=== PATIENT | male | born 1960 ===

== ENCOUNTER 2018-02-24 11:50 | Emergency (ER) | payer OTHER, SELFPAY ==
[2018-02-24 12:08] VITALS: BMI 25.0
--- NOTE | 2018-02-24 12:32 | ED PDOC ---
HPI: CCC, URI, Sore Throat Time Seen by Provider: 02/24/18 12:15 Chief Complaint (Nursing): ENT Problem Chief Complaint (Provider): ENT Problem History Per: Patient History/Exam Limitations: no limitations Onset/Duration Of Symptoms: Days (x 2) Current Symptoms Are (Timing): Still Present Location Of Pain: Throat Associated Symptoms: Chills Additional Complaint(s): 57 year old male presents to the ED with a sore throat and associated chills for 2 days. Patient denies having sick contacts and taking medications before arrival. PMD: none provided Past Medical History Reviewed: Historical Data, Nursing Documentation, Vital Signs Vital Signs: Last Vital Signs Temp 99.0 F 02/24/18 12:49 Pulse 87 02/24/18 12:49 Resp 18 02/24/18 12:49 BP 124/73 02/24/18 12:49 Pulse Ox 97 02/24/18 12:49 - Medical History PMH: No Chronic Diseases - Surgical History Surgical History: No Surg Hx - Family History Family History: States: Unknown Family Hx - Social History Current smoker - smoking cessation education provided: No Alcohol: None Drugs: Denies - Home Medications Home Medications: Ambulatory Orders Medication Instructions Recorded Ibuprofen [Motrin] 600 mg PO Q8 PRN #21 tab 02/24/18 - Allergies Allergies/Adverse Reactions: Allergies Allergy/AdvReac Type Severity Reaction Status Date / Time No Known Allergies Allergy Verified 03/31/14 10:32 Review of Systems ROS Statement: Except As Marked, All Systems Reviewed And Found Negative Constitutional: Positive for: Chills ENT: Positive for: Throat Pain Physical Exam - Reviewed Nursing Documentation Reviewed: Yes Vital Signs Reviewed: Yes - Physical Exam Appears: Positive for: Non-toxic, No Acute Distress Head Exam: Positive for: ATRAUMATIC, NORMAL INSPECTION, NORMOCEPHALIC Skin: Positive for: Normal Color, Warm, Dry Eye Exam: Positive for: EOMI, Normal appearance, PERRL ENT: Positive for: Pharyngeal Erythema (mild erythema to right posterior pharynx ). Negative for: Nasal Congestion, Tonsillar Exudate, Tonsillar Swelling Neck: Positive for: Normal, Painless ROM, Supple Cardiovascular/Chest: Positive for: Regular Rate, Rhythm. Negative for: Murmur Respiratory: Positive for: CNT, Normal Breath Sounds Extremity: Positive for: Normal ROM. Negative for: Deformity Neurologic/Psych: Positive for: Alert, Oriented (x 3) - ECG O2 Sat by Pulse Oximetry: 99 (RA) Pulse Ox Interpretation: Normal - Progress ED Course And Treament: RAPID STREP: NEG MOTRIN 600MG X 1 DOSE Medical Decision Making Medical Decision Makin:17 --Motrin 600 mg PO --rapid strep test --reassess 12:40 Rapid strep results are negative. Scribe Attestation: Documented by Edith Nunes, acting as a scribe for Gemma Gary PA-C Provider Scribe Attestation: All medical record entries made by the Scribe were at my direction and personally dictated by me. I have reviewed the chart and agree that the record accurately reflects my personal performance of the history, physical exam, medical decision making, and the department course for this patient. I have also personally directed, reviewed, and agree with the discharge instructions and disposition. Disposition - Clinical Impression Clinical Impression: Pharyngitis - Patient ED Disposition Is Patient to be Admitted: No - Disposition Disposition: Routine/Home Disposition Time: 13:05 Condition: FAIR Prescriptions: Ibuprofen [Motrin] 600 mg PO Q8 PRN #21 tab PRN Reason: Pain, Moderate (4-7) Instructions: Viral Pharyngitis Forms: [facility] ED School/Work Excuse Print Language: HUNGARIAN
[2018-02-24 12:50] VITALS: BP 124/73; PULSE 87; RESP 18; TEMP 99
[2018-02-24 13:07] VITALS: O2SAT 99
== END 2018-02-24 13:14 | disposition home or self-care (01) ==
LOC: H.ER 11:50
DX: J02.9 Acute pharyngitis, unspecified (principal)

== ENCOUNTER 2018-03-19 11:41 | Emergency (ER) | payer OTHER ==
[2018-03-19 11:41] VITALS: BMI 25.0
[2018-03-19 11:55] VITALS: BP 116/74; PULSE 73; RESP 17; TEMP 97.9; O2SAT 99
--- NOTE | 2018-03-19 13:09 | ED PDOC ---
Upper Extremity Pain/Injury Time Seen by Provider: 03/19/18 12:20 Chief Complaint (Nursing): Upper Extremity Problem/Injury Chief Complaint (Provider): Upper Extremity Problem/Injury History Per: Patient History/Exam Limitations: no limitations Onset/Duration Of Symptoms: Hrs (x3) Additional Complaint(s): Patient is a 57 y/o male who presents to the ED for evaluation of left hand pain s/p fall. Patient states that around 09:28 he hit his left hand during a fall. He reports having swelling to the left ring finger. Patient has not taken any medications for the pain but the pain is not getting better, prompting the ED visit. Past Medical History Reviewed: Historical Data, Nursing Documentation, Vital Signs Vital Signs: Last Vital Signs Temp 97.9 F 03/19/18 11:54 Pulse 73 03/19/18 11:54 Resp 17 03/19/18 11:54 BP 116/74 03/19/18 11:54 Pulse Ox 99 03/19/18 11:54 - Medical History PMH: Hyperlipidemia - Surgical History Surgical History: No Surg Hx - Family History Family History: States: Unknown Family Hx - Living Arrangements Living Arrangements: With Family - Home Medications Home Medications: Ambulatory Orders Medication Instructions Recorded Ibuprofen [Motrin] 600 mg PO Q8 PRN #21 tab 02/24/18 - Allergies Allergies/Adverse Reactions: Allergies Allergy/AdvReac Type Severity Reaction Status Date / Time No Known Allergies Allergy Verified 03/31/14 10:32 Review of Systems ROS Statement: Except As Marked, All Systems Reviewed And Found Negative Constitutional: Negative for: Fever Musculoskeletal: Positive for: Hand Pain (left ring finger) Physical Exam - Reviewed Nursing Documentation Reviewed: Yes Vital Signs Reviewed: Yes - Physical Exam Appears: Positive for: Non-toxic, No Acute Distress Head Exam: Positive for: ATRAUMATIC, NORMOCEPHALIC Skin: Positive for: Normal Color, Warm, DRY Cardiovascular/Chest: Positive for: Regular Rate, Rhythm. Negative for: Murmur, Bradycardia, Tachycardia Respiratory: Positive for: Normal Breath Sounds. Negative for: Respiratory Distress Extremity: Positive for: Normal ROM, Tenderness (tenderness over left 4th PIP), Capillary Refill (<2 seconds), Swelling (swelling over left 4th PIP). Negative for: Pedal Edema, Deformity Neurologic/Psych: Positive for: Alert, Oriented. Negative for: Motor/Sensory Deficits - ECG O2 Sat by Pulse Oximetry: 99 (RA) Pulse Ox Interpretation: Normal Medical Decision Making Medical Decision Making: Time: 12:21 Initial Impression: left 4th digit pain Initial Plan: --RAD - hand left Time: 13:06 X ray shows no acute fracture or dislocation as read by ER PA. Time: 13:07 Upon provider evaluation patient is medically stable, and requires no further treatment in the ED at this time. Patient will be discharged home with Rx for Motrin 600 mg. Counseling was provided and all questions were answered regarding diagnosis and need for follow up with PMD. There is agreement to discharge plan. Return if symptoms persist or worsen. Scribe Attestation: Documented by Jamie Redmond, acting as a scribe for Vaishali Mendiola PA-C. Provider Scribe Attestation: All medical record entries made by the Scribe were at my direction and personally dictated by me. I have reviewed the chart and agree that the record accurately reflects my personal performance of the history, physical exam, medical decision making, and the department course for this patient. I have also personally directed, reviewed, and agree with the discharge instructions and disposition. Disposition - Clinical Impression Clinical Impression: Finger injury - Patient ED Disposition Is Patient to be Admitted: No - Disposition Referrals: Audrey Sol MD [Staff Provider] - Disposition: Routine/Home Disposition Time: 13:07 Condition: STABLE Additional Instructions: HAILEY MICHELLE, thank you for letting us take care of you today. Your provider was Alfredito Crawford MD and you were treated for FINGER PAIN. The emergency medical care you received today was directed at your acute symptoms. I f you were prescribed any medication, please fill it and take as directed. It may take several days for your symptoms to resolve. Return to the Emergency Department if your symptoms worsen, do not improve, or if you have any other problems. Please contact your doctor or call one of the physicians/clinics you have been referred to that are listed on the Patient Visit Information form that is inclu ded in your discharge packet. Bring any paperwork you were given at discharge with you along with any medications you are taking to your follow up visit. Our treatment cannot replace ongoing medical care by a primary care provider outside of the emergency department. Thank you for allowing the [facility] team to be part of your care today. If you had an X-Ray or CT scan: A Radiologist will review the ED reading if any change in treatment is needed we will contact you. If you had a blood, urine, or wound culture: It will take several days for the results, if any change in treatment is needed we will contact you. If you had an STI test: It will take 48 hours for the results. Please call after 1 week if you have not heard back. Instructions: Jammed Finger Forms: [employer] (Nepali)
--- NOTE | 2018-03-19 13:19 | RAD ---
Date of service: 03/19/2018 PROCEDURE: Left ring finger radiographs. HISTORY: pain over PIP, hit finger COMPARISON: None. TECHNIQUE: AP radiograph of the left hand, as well as spot oblique and lateral images of left ring finger were obtained. FINDINGS: LEFT RING FINGER: Left ring finger normal, without fracture of focal lesion. Remainder of the left hand (as seen on the AP view) is grossly unremarkable. There is a cleft of the distal tuft of the 3rd distal phalanx, possibly the result of old trauma. JOINTS: Normal. SOFT TISSUES: Normal. OTHER FINDINGS: None. IMPRESSION: No acute fracture.
== END 2018-03-19 13:17 | disposition home or self-care (01) ==
LOC: H.ER 11:41
DX: S69.92XA Unspecified injury of left wrist, hand and finger(s), initial encounter (principal); W18.30XA Fall on same level, unspecified, initial encounter

== ENCOUNTER 2018-04-30 11:23 | Emergency (ER) | payer OTHER ==
[2018-04-30 11:25] VITALS: BMI 25.0
[2018-04-30 12:05] VITALS: BP 139/88; PULSE 66; RESP 18; TEMP 96; O2SAT 99
[2018-04-30] MEDS ORDERED: Sodium Chloride 0.9% 1,000 ML IV STA (12:50)
[2018-04-30 13:08] LABS: BASO % 0.4 % (0.0-2.0); EOS % 0.8 % (0.0-4.0); LYMPH # 2.6 K/uL (1.0-4.3); LYMPH % 42.1 % (20.0-40.0); MEAN CELL VOLUME 88.6 fl (80.0-94.0); MEAN CORPUSCULAR HEMOGLOBIN 29.4 pg (27.0-31.0); MEAN CORPUSCULAR HGB CONC 33.2 g/dL (33.0-37.0); MEAN PLATELET VOLUME 8.1 fl (7.2-11.7); MONO # 0.6 K/uL (0.0-0.8); MONO % 9.7 % (0.0-10.0); NEUT # 2.9 K/uL (1.8-7.0); NRBC % 0.1 % (0.0-0.0); RBC 5.43 Mil/uL (4.40-5.90); RED CELL DISTRIBUTION WIDTH 13.9 % (11.5-14.5); WHITE BLOOD COUNT 6.2 K/uL (4.8-10.8)
[2018-04-30 13:14] LABS: INR 1.1; PROTHROMBIN TIME 12.1 Seconds (9.8-13.1)
[2018-04-30 13:16] LABS: PARTIAL THROMBOPLASTIN TIME 38.3 Seconds (25.6-37.1)
[2018-04-30 13:17] LABS: ALB/GLOB RATIO 1.2 (1.0-2.1); ALBUMIN 4.6 g/dL (3.5-5.0); ALT/SGPT 27 U/L (21-72); AST/SGOT 24 U/L (17-59); BLOOD UREA NITROGEN 14 mg/dl (9-20); CALCIUM 9.5 mg/dL (8.4-10.2); GFR NON-AFRICAN AMERICAN > 60
--- NOTE | 2018-04-30 13:33 | ED PDOC ---
HPI: General Adult Time Seen by Provider: 04/30/18 12:34 Chief Complaint (Nursing): GI Problem Chief Complaint (Provider): GI Problem History Per: Patient History/Exam Limitations: no limitations Onset/Duration Of Symptoms: Persistent, Worse Since (x15 days) Current Symptoms Are (Timing): Still Present Additional Complaint(s): 57 year old male presents to ED with complaint of 15 days of rectal bleeding with bowel movements. Patient states he had intermittent yellow stools for the past 6-8 months and was scheduled for a colonoscopy. However, procedure was cancelled as the doctor had an emergency and patient failed to reschedule appointment. Otherwise, he denies any nausea, vomiting, diarrhea, abdominal pain, fever, chills, rectal pain, anticoagulant use, history of GI bleed or anemia. PCP: patient does not recall. Past Medical History Reviewed: Historical Data, Nursing Documentation, Vital Signs Vital Signs: Last Vital Signs Temp 96 F L 04/30/18 12:02 Pulse 66 04/30/18 12:02 Resp 18 04/30/18 12:02 BP 139/88 04/30/18 12:02 Pulse Ox 99 04/30/18 12:02 - Medical History PMH: Hyperlipidemia - Family History Family History: States: Unknown Family Hx - Home Medications Home Medications: Ambulatory Orders Medication Instructions Recorded Ibuprofen [Motrin] 600 mg PO Q8 PRN #21 tab 02/24/18 - Allergies Allergies/Adverse Reactions: Allergies Allergy/AdvReac Type Severity Reaction Status Date / Time No Known Allergies Allergy Verified 03/31/14 10:32 Review of Systems ROS Statement: Except As Marked, All Systems Reviewed And Found Negative Constitutional: Negative for: Fever, Chills Gastrointestinal: Positive for: Hematochezia (with yellow stools). Negative for: Nausea, Vomiting, Abdominal Pain, Diarrhea, Rectal Pain Physical Exam - Reviewed Nursing Documentation Reviewed: Yes Vital Signs Reviewed: Yes - Physical Exam Appears: Positive for: No Acute Distress Head Exam: Positive for: ATRAUMATIC, NORMAL INSPECTION, NORMOCEPHALIC Skin: Positive for: Normal Color Eye Exam: Positive for: EOMI, Normal appearance, PERRL ENT: Positive for: Normal ENT Inspection Neck: Positive for: Normal Cardiovascular/Chest: Positive for: Regular Rate, Rhythm Respiratory: Positive for: Normal Breath Sounds. Negative for: Wheezing, Respiratory Distress Gastrointestinal/Abdominal: Positive for: Normal Exam, Bowel Sounds, Soft. Negative for: Tenderness, Asicites Back: Positive for: Normal Inspection. Negative for: L CVA Tenderness, R CVA Tenderness Extremity: Positive for: Normal ROM (upper/lower) Neurologic/Psych: Positive for: Alert, Oriented (x3) - Laboratory Results Result Diagrams: 04/30/18 12:20 04/30/18 12:20 - ECG O2 Sat by Pulse Oximetry: 99 (RA) Pulse Ox Interpretation: Normal Medical Decision Making Medical Decision Making: Initial Impression: Hematochezia Initial Plan: * Labs * IV fluids * Occult blood, stool Pt. informed of lab results and advised to f/u with Dr. Rivera (GI) for further evaluation. Verbalize understanding of plan and care to provider. Scribe Attestation: Documented by Sarah House, acting as a scribe for RAJ Copeland. Provider Scribe Attestation: All medical record entries made by the Scribe were at my direction and personally dictated by me. I have reviewed the chart and agree that the record accurately reflects my personal performance of the history, physical exam, medical decision making, and the department course for this patient. I have also personally directed, reviewed, and agree with the discharge instructions and disposition. Disposition - Clinical Impression Clinical Impression: Rectal bleeding - Patient ED Disposition Is Patient to be Admitted: No - Disposition Referrals: Jon Rivera MD [Staff Provider] - [facility] [Outside] Disposition: Routine/Home Disposition Time: 13:32 Condition: STABLE Additional Instructions: RETURN TO ED IMMEDIATELY IF SYMPTOMS WORSEN. FOLLOW UP WITH DR. RIVERA FOR FURTHER EVALUATION. HAILEY MICHELLE, thank you for letting us take care of you today. Your provider was Diana Rivera MD and you were treated for BLEEDING. The emergency medical care you received today was directed at your acute symptoms. If you were prescribed any medication, please fill it and take as directed. It may take several days for your symptoms to resolve. Return to the Emergency Department if your symptoms worsen, do not improve, or if you have any other problems. Please contact your doctor or call one of the physicians/clinics you have been referred to that are listed on the Patient Visit Information form that is included in your discharge packet. Bring any paperwork you were given at discharge with you along with any medications you are taking to your follow up visit. Our treatment cannot replace ongoing medical care by a primary care provider outside of the emergency department. Thank you for allowing the [facility] team to be part of your care today. If you had an X-Ray or CT scan: A Radiologist will review the ED reading if any change in treatment is needed we will contact you. If you had a blood, urine, or wound culture: It will take several days for the results, if any change in treatment is needed we will contact you. If you had an STI test: It will take 48 hours for the results. Please call after 1 week if you have not heard back. Instructions: Bloody Stools, Adult (DC) Forms: [employer] (Malawian) Print Language: TOGOLESE
== END 2018-04-30 14:15 | disposition home or self-care (01) ==
LOC: H.ER 11:23
DX: K62.5 Hemorrhage of anus and rectum (principal); E78.5 Hyperlipidemia, unspecified
CPT/HCPCS: 80053; 85025; 85610; 85730; 86850; 86900; 99284; G0328; J7030